=== PATIENT | female | born 1965 | race Caucasian/White ===

== ENCOUNTER → 2024-01-27 | Outpatient (CLI) | payer OTHER ==
[~2024-01-27] MED LIST: CLAR10CA3 PO; FLON1SPR NARES; PRIM50TA6 PO; PROB1CAP10 PO
== END ==
LOC: M RAD 13:40
PROVIDERS: ATTEND Physician Assistant
DX: J32.8 Other chronic sinusitis (principal)

== ENCOUNTER → 2024-05-18 | Outpatient (CLI) | payer OTHER | LOC: M PLARAD 13:28 | PROVIDERS: ATTEND Internal Medicine | DX: D44.11 Neoplasm of uncertain behavior of right adrenal gland (principal) | CPT/HCPCS: 78815; A9552 ==

== ENCOUNTER 2024-10-18 11:30 | Day surgery (SDC) | payer OTHER ==
[~2024-10-18] VITALS: Ht 172.7 cm; Wt 80.3 kg
[~2024-10-18 11:30] MED LIST changes: +COQ150CH PO; +OMEG10002 PO; +PROBCAP14 PO; +THERTAB52 PO
[2024-10-18] MEDS ORDERED: fentaNYL 100 MCG/2 ML INJECTION As Ordered ONE (13:03)
[2024-10-18 13:27] VITALS: TEMP 98.7
[2024-10-18 13:50] VITALS: BP 119/63; O2SAT 99
== END 2024-10-18 13:53 | disposition home or self-care (01) ==
LOC: M OPP 11:30
PROVIDERS: ATTEND Internal Medicine Gastroenterology
DX: R12 Heartburn (principal); K31.89 Other diseases of stomach and duodenum; K22.70 Barrett's esophagus without dysplasia; J31.2 Chronic pharyngitis; R19.7 Diarrhea, unspecified; Z90.49 Acquired absence of other specified parts of digestive tract; E78.00 Pure hypercholesterolemia, unspecified; Z79.899 Other long term (current) drug therapy; F17.290 Nicotine dependence, other tobacco product, uncomplicated; Z91.040 Latex allergy status; Z88.8 Allergy status to other drugs, medicaments and biological substances

== ENCOUNTER → 2024-12-27 | Outpatient (CLI) | payer OTHER | LOC: M RAD 17:01 | PROVIDERS: ATTEND Physician Assistant Medical | DX: R19.7 Diarrhea, unspecified (principal); R14.0 Abdominal distension (gaseous) ==

== ENCOUNTER → 2025-01-12 | Outpatient (CLI) | payer OTHER | LOC: M RAD 07:38 | PROVIDERS: ATTEND Otolaryngology | DX: J32.4 Chronic pansinusitis (principal); J34.2 Deviated nasal septum ==

== ENCOUNTER → 2025-04-11 | Outpatient (RCR) ==
[~2025-04-11] MED LIST changes: +AZEL1SPR3; +DEXA1TA PO
== END ==
LOC: M EMPSKH 03-15 14:02
PROVIDERS: ATTEND Family Medicine
DX: Z20.828 Contact with and (suspected) exposure to other viral communicable diseases (principal)